=== PATIENT | male | born 1985 | race American Indian/Alaskan Native ===

== ENCOUNTER 2016-03-02 10:49 | Emergency (ER) | payer BC ==
--- NOTE | 2016-03-02 11:16 | Emergency Department Report ---
Chief Complaint: Chest Pain Stated Complaint: CHEST PAIN Time Seen by Provider: 03/02/16 11:16 - HPI History of Present Illness: Patient here complaining of chest pain that is 8 out of 10 and some abdominal cramping that is mild. Patient reports nausea and vomiting this morning .he also said that he had diarrhea. Reports vomiting and diarrhea 4-5 times since this morning. Denies any alcohol use, denies any recent travel outside the country. Denies any blood in stool. Reports chills but denies fever. She reports that he has difficulty in taking a deep breath. He said he had similar incident in the past about 4 years ago when he went to [place] and they told them that he had bronchial swelling. Denies any urinary burning frequency or urgency. Denies any medical problems. - ROS Review of Systems: All systems are negative unless stated in HPI above. - Exam Vital Signs: Vital Signs 03/02/16 10:53 Temperature 98.5 F Pulse Rate 77 Respiratory 18 Rate Blood Pressure 123/68 O2 Sat by Pulse 100 Oximetry Physical Exam: General: This is a 30-year-old male well-nourished well-developed and nontoxic in appearance. Abdomen: Mild tenderness to palpate without any guarding or rebound tenderness. Normal bowel sounds. CV: S1, S2. Regular rate and rhythm. Lungs: Auscultate wheezing to lung pierce. Normal work of breathing. MSE screening note: Focused history and physical exam performed. Due to findings the following was ordered:see mdm ED Medical Decision Making - Medical Decision Making Medical decision making: Patient seen by provider in triage area. Appropriate protocol activated and patient to main ED to be seen by physician. ED Disposition for MSE Condition: Stable
[2016-03-02] MEDS ORDERED: DUONEB 0.5 MG-3 MG/3 ML SOLN IH ONE (11:22)
[2016-03-02 11:51] LABS: Basophils % (Auto) 0.6 % (0.0-1.8); Eosinophils % (Auto) 0.6 % (0.0-4.3); Hematocrit 41.5 % (35.5-45.6); Hemoglobin 13.4 gm/dl (11.8-15.2); Mean Corpuscular HGB Conc 32 % (32-34); Mean Corpuscular Hemoglobin 30 pg (28-32); Mean Corpuscular Volume 91 fl (84-94); Platelet Count 248 K/mm3 (140-440); Red Blood Count 4.56 M/mm3 (3.65-5.03); Red Cell Distribution Width 13.3 % (13.2-15.2); White Blood Count 10.3 K/mm3 (4.5-11.0)
[2016-03-02 12:09] LABS: Anion Gap 17 mmol/L; BUN/Creatinine Ratio 13.75; Blood Urea Nitrogen 11 mg/dL (9-20); Calcium 8.9 mg/dL (8.4-10.2); Carbon Dioxide 27 mmol/L (22-30); Chloride 98.1 mmol/L (98-107); Creatine Kinase MB 3.9 ng/mL (0.0-4.0); Glucose 101 mg/dL (75-100); Sodium 138 mmol/L (137-145)
[2016-03-02 12:11] LABS: Alanine Aminotransferase 31 units/L (7-56); Albumin 4.5 g/dL (3.9-5); Albumin/Globulin Ratio 1.3 %; Alkaline Phosphatase 77 units/L (35-129); Amylase 99 units/L (27-131); Bilirubin,Total 0.2 mg/dL (0.1-1.2); Creatine Kinase 336 units/L (55-170); Lipase 18 units/L (13-60); Total Protein 7.9 g/dL (6.3-8.2)
[2016-03-02 12:26] LABS: Bilirubin,Direct < 0.2 mg/dL (0-0.2)
--- NOTE | 2016-03-02 12:56 | XRay Report ---
ROUTINE CHEST, TWO VIEWS: HISTORY: Shortness of breath. The trachea, heart, mediastinal contour, lung pierce and bony thorax are unremarkable. IMPRESSION: Unremarkable chest x-ray.
--- NOTE | 2016-03-02 14:00 | Emergency Department Report ---
HPI - General Chief Complaint: Chest Pain Time Seen by Provider: 03/02/16 11:16 - HPI HPI: Chief complaint: Shortness of breath chest tightness HPI: This is a 30-year-old male with a history of having had wheezing approximately 3 years ago that was treated at another hospital and has been fine until recently. Patient states this morning he woke up wheezing and felt tightness in his chest. Patient also had an episode of nausea and vomiting 2 and one episode of loose stools. Patient has a dry cough. No fevers. Patient denies history of hypertension, diabetes, elevated cholesterol, cigarette smoking, cocaine, family history of coronary artery disease. Patient denies recent surgery or travel. 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 Quality: Tightness Severity: Currently 0 out of 10 Improved with: Nebulizer Worsened with: Nothing Associated signs and symptoms: See above ED Past Medical Hx - Past Medical History Previous Medical History?: No - Surgical History Past Surgical History?: No - Social History Smoking Status: Current Every Day Smoker Substance Use Type: Alcohol - Medications Home Medications: Home Medications Medication Instructions Recorded Confirmed Last Taken Type ALBUTEROL Inhaler [ProAir HFA 2 puff IH QID PRN #1 inhalation 03/02/16 Unknown Rx Inhaler] Prednisone [predniSONE 5 mg (6-Day 5 mg PO .TAPER #1 tab.ds.pk 03/02/16 Unknown Rx Pack, 21 Tabs)] ED Review of Systems ROS: Stated complaint: CHEST PAIN Other details as noted in HPI ROS Constitutional: No fever ENT: No uri symptoms Cardiovascular: See HPI Respiratory: See HPI GI: No nausea vomiting or diarrhea : No dysuria frequency or urgency, Skin: No rash Neuro: No focal weakness or numbness Psych: No depression Heraclio/lymph: No edema Physical Exam - Physical Exam Vital Signs: Vital Signs 03/02/16 03/02/16 03/02/16 10:53 11:37 12:12 Temperature 98.5 F Pulse Rate 77 Pulse Rate [ 69 82 Posterior Bilateral Throughout] Respiratory 18 Rate Respiratory 18 18 Rate [Posterior Bilateral Throughout] Blood Pressure 123/68 O2 Sat by Pulse 100 Oximetry 03/02/16 12:55 Temperature Pulse Rate Pulse Rate [ Posterior Bilateral Throughout] Respiratory 18 Rate Respiratory Rate [Posterior Bilateral Throughout] Blood Pressure O2 Sat by Pulse 99 Oximetry Physical Exam: GENERAL: The patient is well-developed well-nourished . HEENT: Normocephalic. Atraumatic. Extraocular motions are intact. Patient has moist mucous membranes. NECK: Supple. No meningitic signs are noted. There is no adenopathy noted. CHEST/LUNGS: Clear to auscultation. There is no respiratory distress noted. HEART/CARDIOVASCULAR: Regular. There is no tachycardia. There is no gallop rub or murmur. ABDOMEN: Abdomen is soft, nontender. Patient has normal bowel sounds. There is no abdominal distention. SKIN: There is no rash. There is no edema. There is no diaphoresis. NEURO: The patient is awake, alert, and oriented. The patient is cooperative. The patient has no focal neurologic deficits. The patient has normal speech. MUSCULOSKELETAL: There is no tenderness or deformity. There is no limitation range of motion. There is no evidence of acute injury. ED Course Vital Signs 03/02/16 03/02/16 03/02/16 10:53 11:37 12:12 Temperature 98.5 F Pulse Rate 77 Pulse Rate [ 69 82 Posterior Bilateral Throughout] Respiratory 18 Rate Respiratory 18 18 Rate [Posterior Bilateral Throughout] Blood Pressure 123/68 O2 Sat by Pulse 100 Oximetry 03/02/16 12:55 Temperature Pulse Rate Pulse Rate [ Posterior Bilateral Throughout] Respiratory 18 Rate Respiratory Rate [Posterior Bilateral Throughout] Blood Pressure O2 Sat by Pulse 99 Oximetry - Reevaluation(s) Reevaluation #1: 03/02/16 14:17 Patient was given a DuoNeb prior to my evaluation with improvement. ED Medical Decision Making - Lab Data Result diagrams: 03/02/16 11:37 03/02/16 11:37 Laboratory Tests 03/02/16 03/02/16 11:37 11:37 Total Creatine Kinase 336 H CK-MB (CK-2) 3.9 CK-MB (CK-2) Rel Index 1.1 Troponin T < 0.010 - EKG Data -: EKG Interpreted by Ut EKG shows normal: sinus rhythm Rate: normal (63) - EKG Data When compared to previous EKG there are: previous EKG unavailable Interpretation: normal EKG - Radiology Data Radiology results: report reviewed (chest x-ray within normal limits.) Critical care attestation.: If time is entered above; I have spent that time in minutes in the direct care of this critically ill patient, excluding procedure time. ED Disposition Clinical Impression: Asthmatic bronchitis with exacerbation Qualifiers: Asthma severity: mild intermittent Qualified Code(s): J45.21 - Mild intermittent asthma with (acute) exacerbation Disposition: DISCHARGED TO HOME OR SELFCARE Is pt being admited?: No Does the pt Need Aspirin: No Condition: Stable Instructions: Reactive Airways Disease (ED), Chronic Bronchitis (ED) Prescriptions: ALBUTEROL Inhaler [ProAir HFA Inhaler] 2 puff IH QID PRN #1 inhalation PRN Reason: Shortness Of Breath Prednisone [predniSONE 5 mg (6-Day Pack, 21 Tabs)] 5 mg PO .TAPER #1 tab.ds.pk Referrals: PRIMARY CARE, [Primary Care Provider] - 3-5 Days MORRIS HAM MD [Staff Physician] - 3-5 Days (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
[2016-03-02 14:33] VITALS: BP 126/62
== END 2016-03-02 14:33 | disposition home or self-care (01) ==
LOC: ED 10:49
DX: J45.21 Mild intermittent asthma with (acute) exacerbation (principal); R11.2 Nausea with vomiting, unspecified; F17.200 Nicotine dependence, unspecified, uncomplicated
CPT/HCPCS: 36415; 71020; 80048; 80074; 82150; 82550; 82553; 83690; 84484; 85025; 93005; 93010; 94640

== ENCOUNTER 2018-07-04 21:42 | Emergency (ER) | payer BC, OTHER ==
[2018-07-05 02:39] VITALS: BP 115/72
[2018-07-05] MEDS ORDERED: TYLENOL PO ONE (03:43)
[2018-07-05] MEDS ORDERED: TYLENOL ONE (03:46)
[2018-07-05] MEDS ORDERED: PERCOCET 5/325 PO ONE (05:28)
[2018-07-05] MEDS ORDERED: IBUPROFEN PO ONE (05:28)
[2018-07-05] MEDS ORDERED: ZOFRAN ODT PO ONE (05:29)
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
[2018-07-05] MEDS ORDERED: MOTRIN ONE (06:33)
[2018-07-05] MEDS ORDERED: MOTRIN PO ONE (06:35)
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
== END 2018-07-05 07:49 | disposition home or self-care (01) ==
LOC: ED 21:42
DX: S43.402A Unspecified sprain of left shoulder joint, initial encounter (principal); S83.92XA Sprain of unspecified site of left knee, initial encounter; S73.102A Unspecified sprain of left hip, initial encounter; M62.830 Muscle spasm of back; F12.10 Cannabis abuse, uncomplicated; V49.49XA Driver injured in collision with other motor vehicles in traffic accident, initial encounter; Y93.89 Activity, other specified; Y92.89 Other specified places as the place of occurrence of the external cause; Y99.8 Other external cause status
CPT/HCPCS: 72040; 72100; Q0162